=== PATIENT | female | born 1965 | race Caucasian/White ===

== ENCOUNTER → 2019-10-22 | Outpatient (CLI) | payer OTHER, MEDICAID ==
[~2019-10-22] MED LIST: CARI-277 PO; MORP1CAP31 PO; NAPROSYN; NOR10T GT; QUET50TA5 PO; TEMA15CA PO; VICODIN
== END | disposition home or self-care (01) ==
LOC: Rad HDHVI 15:11
PROVIDERS: ATTEND Internal Medicine
DX: I07.1 Rheumatic tricuspid insufficiency (principal); J44.9 Chronic obstructive pulmonary disease, unspecified; M32.9 Systemic lupus erythematosus, unspecified; R07.9 Chest pain, unspecified
CPT/HCPCS: 93306

== ENCOUNTER → 2019-10-24 | Outpatient (CLI) | payer OTHER, MEDICAID ==
[~2019-10-24] VITALS: Ht 171.4 cm; Wt 68.5 kg
[~2019-10-24] MED LIST changes: +ADENOSINE 58 MG in GIVE UN-DILUTED 0 ML IV ONE; +ADENOSINE 90 MG/30 ML INJ IV ONE
== END | disposition home or self-care (01) ==
LOC: Rad HDHVI 08:54
PROVIDERS: ATTEND Internal Medicine
DX: Z13.0 Encounter for screening for diseases of the blood and blood-forming organs and certain disorders involving the immune mechanism (principal); E78.00 Pure hypercholesterolemia, unspecified; R06.02 Shortness of breath; R07.9 Chest pain, unspecified; F17.210 Nicotine dependence, cigarettes, uncomplicated; Z82.49 Family history of ischemic heart disease and other diseases of the circulatory system
CPT/HCPCS: 78452; 93005; 96374; 96375; A9500; J0153

== ENCOUNTER → 2019-12-12 | Outpatient (CLI) | payer OTHER, MEDICAID ==
[~2019-12-12] MED LIST changes: -ADENOSINE 58 MG in GIVE UN-DILUTED 0 ML IV ONE; -ADENOSINE 90 MG/30 ML INJ IV ONE
[2019-12-12 09:58] VITALS: BP 100/68
--- NOTE | 2019-12-12 09:58 | NUR ---
CLINIC PT ARRIVED TO [facility] FOR PRE OP EKG, CXR, LABS FOR LHC ON 12/17/19. A/OX4, AMBULATORY. PT ACCOMPANIED BY FAMILY. BREATHING IS EVEN AND UNLABORED.
--- NOTE | 2019-12-12 10:07 | NUR ---
EKG DONE BY YI PATEL REVIEWED BY LUCY BHATTI SR [id number]
[2019-12-12 10:18] VITALS: BP 107/63
--- NOTE | 2019-12-12 10:18 | NUR ---
Pre-Op Discharge Summary: See e-MAR for any medications given for this visit. Pre-op orders received and carried out per MD of EKG, LABS and chest xrays. Patient given a copy of EKG with instructions to go DIRECTLY to [facility] out patient for further follow up care. NOTE EKG DONE BY YI PATEL REVIEWED BY LUCY BHATTI
[2019-12-12 12:33] LABS: Basophils # (auto) 0 10 ^3/uL (0-0.2); Basophils % (auto) 0.4 % (0.0-2.0); Eosinophils # (auto) 0.1 10 ^3/uL (0-0.8); Hematocrit 49.9 % (36.0-46.0); Hemoglobin 16.5 g/dL (12.2-16.2); Lymphocytes # (auto) 2.5 10 ^3/uL (0.4-5.4); Lymphocytes % (auto) 24.7 % (10.0-50.0); Mean Corpuscular Hemoglobin 29.4 pg (28.0-32.0); Monocytes # (auto) 0.5 10 ^3/uL (0-1.3); Monocytes % (auto) 4.4 % (0.0-12.0); Neutrophils # (auto) 7.2 10 ^3/uL (1.6-8.6); Neutrophils % (auto) 69.5 % (37.0-80.0); Nucleated Red Blood Cells % 0.1 %; Platelet Count (auto) 290 10^3/uL (140-450); Red Cell Distribution Width 13.1 % (11.8-14.3); White Blood Cell 10.3 10^3/uL (4.4-10.8)
[2019-12-12 12:44] LABS: INR 0.98 (0.9-1.15); Partial Thromboplastin Time 28.2 sec (23.0-31.2)
[2019-12-12 12:45] LABS: Potassium 3.7 mmol/L (3.5-5.1)
[2019-12-12 12:54] LABS: BUN/Creatinine Ratio 13.3; Calcium 9.5 mg/dL (8.5-10.1)
== END | disposition home or self-care (01) ==
LOC: Rad HDHVI 09:41
PROVIDERS: ATTEND Internal Medicine
DX: Z01.812 Encounter for preprocedural laboratory examination (principal); J98.11 Atelectasis; R07.9 Chest pain, unspecified; I51.9 Heart disease, unspecified; R06.02 Shortness of breath
CPT/HCPCS: 36415; 71046; 80048; 85025; 85610; 85730; 93005; G0463

== ENCOUNTER 2019-12-17 07:16 | Day surgery (SDC) | payer OTHER, MEDICAID ==
[~2019-12-17] VITALS: Ht 170.2 cm; Wt 67.1 kg
[2019-12-17] MEDS ORDERED: LORazepam 2MG/ML-1ML VIAL IV ONE ×2 (08:00→09:00)
[2019-12-17] MEDS ORDERED: LIDOCAINE 2%HCL (LOCAL ANESTH.) INJ 20ML MDV ONE (08:32)
[2019-12-17] MEDS ORDERED: fentaNYL CITRATE 100 MCG/2 ML VL ONE ×2 (08:51→10:01)
[2019-12-17] MEDS ORDERED: LORazepam 2MG/ML-1ML VIAL ONE ×2 (08:51→09:59)
[2019-12-17] MEDS ORDERED: SODIUM CHL 0.9% 0 ML ONE (08:51)
[2019-12-17] MEDS ORDERED: ANGIOMAX 250 MG VIAL IV ONE (08:51)
[2019-12-17] MEDS ORDERED: VERAPAMIL 2.5MG/ML INJ 2ML VIAL IV ONE (09:11)
[2019-12-17] MEDS ORDERED: HEPARIN SODIUM (PORCINE) 5000 UNITS/ML 1ML VIAL ONE ×2 (09:11→09:32)
[2019-12-17] MEDS ORDERED: ONDANSETRON HCL 4 MG/2 ML VIAL IV PRN (10:45)
[2019-12-17] MEDS ORDERED: HYDROcodone-ACET 5/325MG TAB PO PRN (10:45)
[2019-12-17] MEDS ORDERED: ACETAMINOPHEN 500 MG TAB PO PRN (10:45)
[2019-12-17] MEDS ORDERED: SODIUM CHLOR 0.9% PF (SALINE LOCK) 10ML VIAL/SYR IV SCH (14:00)
== END 2019-12-17 12:45 | disposition home or self-care (01) ==
LOC: CATH 07:16
PROVIDERS: ATTEND Internal Medicine
DX: R94.39 Abnormal result of other cardiovascular function study (principal); I10 Essential (primary) hypertension; E78.5 Hyperlipidemia, unspecified; J44.9 Chronic obstructive pulmonary disease, unspecified; Z79.899 Other long term (current) drug therapy; Z98.890 Other specified postprocedural states; Z88.8 Allergy status to other drugs, medicaments and biological substances; Z11.59 Encounter for screening for other viral diseases
CPT/HCPCS: 93458; C1769; C1887; C1894; J1644; J2060; J3010; U0001; 99152; 99153

== ENCOUNTER → 2020-11-15 | Outpatient (CLI) | payer OTHER, MEDICAID ==
[~2020-11-15] MED LIST changes: +AMIO200T33 PO; +ATOR40TA52 PO; +DILT120T8 PO; +FENO145T27 PO; +GABA300C10 PO; +RANO500T2 PO
[2020-11-15 08:35] VITALS: BP 110/68
[2020-11-15 09:02] VITALS: BP 104/58
[2020-11-15 14:05] LABS: INR 0.96 (0.9-1.15); Partial Thromboplastin Time 28.7 sec (23.0-31.2)
[2020-11-15 14:13] LABS: Basophils # (auto) 0 10 ^3/uL (0-0.2); Basophils % (auto) 0.5 % (0.0-2.0); Eosinophils # (auto) 0.1 10 ^3/uL (0-0.8); Eosinophils % (auto) 1.6 % (0.0-7.0); Hematocrit 44.5 % (36.0-46.0); Hemoglobin 15.4 g/dL (12.2-16.2); Lymphocytes # (auto) 2.3 10 ^3/uL (0.4-5.4); Lymphocytes % (auto) 24.6 % (10.0-50.0); Mean Corpuscular Hemoglobin 32.6 pg (28.0-32.0); Mean Corpuscular Hgb Conc. 34.7 g/dL (32.0-36.0); Mean Corpuscular Volume 93.8 fL (80.0-100.0); Monocytes # (auto) 0.5 10 ^3/uL (0-1.3); Monocytes % (auto) 5.6 % (0.0-12.0); Neutrophils # (auto) 6.4 10 ^3/uL (1.6-8.6); Neutrophils % (auto) 67.7 % (37.0-80.0); Red Blood Cells 4.74 10^6/uL (4.0-5.20); Red Cell Distribution Width 14.6 % (11.8-14.3); White Blood Cell 9.5 10^3/uL (4.4-10.8)
[2020-11-15 14:42] LABS: BUN/Creatinine Ratio 17.1; Calcium 8.8 mg/dL (8.5-10.1); Potassium 3.6 mmol/L (3.5-5.1)
== END | disposition home or self-care (01) ==
LOC: Rad HDHVI 08:26
PROVIDERS: ATTEND Internal Medicine
DX: Z01.812 Encounter for preprocedural laboratory examination (principal); I47.1 Supraventricular tachycardia; R55 Syncope and collapse; I42.9 Cardiomyopathy, unspecified; I70.0 Atherosclerosis of aorta; R07.9 Chest pain, unspecified
CPT/HCPCS: 36415; 71046; 80048; 85025; 85049; 85610; 85730; 93005; G0463

== ENCOUNTER → 2020-11-17 | Day surgery (SDC) | payer OTHER, MEDICAID ==
[~2020-11-17] VITALS: Ht 172.7 cm; Wt 64.9 kg
[~2020-11-17] MED LIST changes: +ACETAMINOPHEN 325 MG TAB PO PRN; -CARI-277 PO; +HYDROcodone-ACET 5/325MG TAB PO PRN; +LIDOCAINE 2%HCL (LOCAL ANESTH.) INJ 20ML MDV ONE; +LORazepam 2MG/ML-1ML VIAL ONE; -MORP1CAP31 PO; -NAPROSYN; -QUET50TA5 PO; -TEMA15CA PO; +VANCOMYCIN 1GM/250ML 250 ML IV ONE; -VICODIN; +diphenhdrAMINE HCL 50 MG/1 ML VL ONE; +fentaNYL CITRATE 100 MCG/2 ML VL ONE
== END | disposition home or self-care (01) ==
LOC: CATH 06:30
PROVIDERS: ATTEND Internal Medicine
DX: R06.02 Shortness of breath (principal); J44.9 Chronic obstructive pulmonary disease, unspecified; E78.5 Hyperlipidemia, unspecified; I25.10 Atherosclerotic heart disease of native coronary artery without angina pectoris; I11.0 Hypertensive heart disease with heart failure; Z20.822 Contact with and (suspected) exposure to COVID-19; Z86.73 Personal history of transient ischemic attack (TIA), and cerebral infarction without residual deficits; Z87.891 Personal history of nicotine dependence; Z88.8 Allergy status to other drugs, medicaments and biological substances; Z88.1 Allergy status to other antibiotic agents
CPT/HCPCS: 33285; C1764; J1200; J2060; J3010; J3370; U0003; 33282; 99152

== ENCOUNTER → 2021-10-11 | Outpatient (CLI) | payer OTHER, MEDICAID ==
[~2021-10-11] MED LIST changes: -ACETAMINOPHEN 325 MG TAB PO PRN; -HYDROcodone-ACET 5/325MG TAB PO PRN; -LIDOCAINE 2%HCL (LOCAL ANESTH.) INJ 20ML MDV ONE; -LORazepam 2MG/ML-1ML VIAL ONE; -VANCOMYCIN 1GM/250ML 250 ML IV ONE; -diphenhdrAMINE HCL 50 MG/1 ML VL ONE; -fentaNYL CITRATE 100 MCG/2 ML VL ONE
== END | disposition home or self-care (01) ==
LOC: LAB 10:49
PROVIDERS: ATTEND Physician Assistant
DX: Z20.822 Contact with and (suspected) exposure to COVID-19 (principal)
CPT/HCPCS: 36415